=== PATIENT | male | born 1955 | race African-American/Black ===

== ENCOUNTER 2017-01-04 09:03 | Emergency (ER) | payer MEDICAID, MEDICARE ==
[2017-01-04 09:21] VITALS: BP 149/103
--- NOTE | 2017-01-04 09:43 | ED Physician Chart ---
Chief Complaint/HPI - Patient Information Date Seen:: 01/04/17 Time Seen:: 09:30 Chief Complaint:: bilateral knee pain History of Present Illness:: THIS IS A 61 YO BLACK MALE WITH BILATERAL KNEE PAIN AND STATES THAT HE HAS ARTHRITIS IN BOTH KNEES. HE STATES THAT HIS PAIN IS 8/10 AND HAS BEEN TAKING NARCO 10/325 AND RAN OUT. HE STATES THAT HE IS SCHEDULED FOR TREATMENT BY A PAIN MANAGEMENT DOCTOR ON SATURDAY JANUARY 07, 2017. HE STATES THAT HE HAD SURGERY OF THE LEFT KNEE MANY YEARS AGO. HE DENIES DIABETES BUT ADMITS TO HYPERTENSION. HE IS A SMOKER BUT DENIES ALCOHOL USE. HE ALSO DENIES ILLEGAL DRUG USE. Allergies:: Allergies Allergy/AdvReac Type Severity Reaction Status Date / Time No Known Allergies Allergy Verified 01/04/17 09:16 Vitals:: Vital Signs - 8 hr 01/04/17 01/04/17 09:21 09:24 Temp 98.2 F HR 69 RR 15 BP 149/103 149/103 Historian:: Patient Review:: Nurse's Note Reviewed Review of Systems - Review of Systems General/Constitutional: No fever, No chills, No weight loss, No weakness, No diaphoresis, No edema, No loss of appetite Skin: No skin lesions, No rash, No bruising Head: No headache, No light-headedness Eyes: No loss of vision, No pain, No diplopia ENT: No earache, No nasal drainage, No sore throat, No tinnitus Neck: No neck pain, No swelling, No thyromegaly, No stiffness, No mass noted Cardio Vascular: No chest pain, No palpitations, No PND, No orthopnea, No edema Pulmonary: No SOB, No cough, No sputum, No wheezing GI: No nausea, No vomiting, No diarrhea, No pain, No melena, No hematochezia, No constipation, No hematemesis G/U: No dysuria, No frequency, No hematuria Musculoskeletal: Bone or joint pain (BOTH KNEES), No back pain, No muscle pain Endocrine: No polyuria, No polydipsia Psychiatric: No prior psych history, No depression, No anxiety, No suicidal ideation Hematopoietic: No bruising, No lymphadenopathy Allergic/Immuno: No urticaria, No angioedema Neurological: No syncope, No focal symptoms, No weakness, No paresthesia, No headache, No seizure, No dizziness, No confusion, No vertigo Past Medical History - Past Medical History Obtainable: Yes Past Medical History: HTN, Arthritis Family History: None, HTN Social History: Smoker, No Alcohol, No Drug Use Surgical History: other (LEFT KNEE SURGERY) Psychiatricy History: None Medication: Reviewed Family Medical History - Family Member Mother Hx Family Cancer: No Hx Family Coronary Artery Disease: No Hx Family Congestive Heart Failure: No Hx Family Hypertension: Yes Hx Family Diabetes: Yes Hx Family Seizures: No Hx Family AIDS: No Hx Family HIV: No Hx Family COPD: No Hx Family Hepatitis: No Hx Family Psychiatric Problems: No Hx Family Tuberculosis: No Physical Exam - Physical Examination General/Constitutional: Awake, Well-developed, well-nourished, Alert, No distress, GCS 15, Non-toxic appearing, Ambulatory Head: Atraumatic Eyes: Lids, conjuctiva normal, PERRL, EOMI Skin: Nl inspection, No rash, No skin lesions, No ecchymosis, Well hydrated, No lymphadenopathy ENMT: External ears, nose nl, Nasal exam nl, Lips, teeth, gums nl Neck: Nontender, Full ROM w/o pain, No JVD, No nuchal rigidity, No bruit, No mass, No stridor Respiratory: Nl effort/Exclusion, Clear to Auscultation, No Wheeze/Rhonchi/Rales Cardio Vascular: RRR, No murmur, gallop, rubs, NL S1 S2 GI: No tenderness/rebounding/guarding, No organomegaly, No hernia, Normal BS's, Nondistended, No mass/bruits, No McBurney tenderness : No CVA tenderness Extremities: No tenderness or effusion, Full ROM (FULL ROM WITH MILD PAIN ON FLEXSION), normal strength in all extremities, No edema, Normal digits & nails Neuro/Psych: Alert/oriented, DTR's symmetric, Normal sensory exam, Normal motor strength, Judgement/insight normal, Mood normal, Normal gait, No focal deficits Misc: normal gait, Normal back, No paraspinal tenderness Labs/Radiology/EKG Results - Lab Results Results: Abnormal Lab Results 01/04/17 01/04/17 01/04/17 09:48 09:48 09:48 WBC 4.2 L RBC 6.17 H Hgb 17.3 Hct 51.9 H MCV 84.1 MCH 28.1 MCHC Differential 33.4 RDW 13.6 Plt Count 193 MPV 8.4 PT 11.5 INR 1.10 PTT (Actin FS) 27.4 Sodium 139 Potassium 3.0 L Chloride 107 Carbon Dioxide 27.4 Anion Gap 7.6 BUN 8 Creatinine 0.9 Est GFR ( Amer) > 60.0 Est GFR (Non-Af Amer) > 60.0 BUN/Creatinine Ratio 8.9 Glucose 109 H Calcium 9.5 Total Bilirubin 1.7 H AST 34 ALT 68 H Alkaline Phosphatase 62 Troponin I Total Protein 7.5 Albumin 4.4 Globulin 3.1 Albumin/Globulin Ratio 1.4 Triglycerides 149 Cholesterol 149 LDL Cholesterol Direct 84 HDL Cholesterol 34 Urine Source Urine Color Urine Clarity Urine pH Ur Specific [place] Urine Protein Urine Glucose (UA) Urine Ketones Urine Blood Urine Nitrate Urine Bilirubin Urine Urobilinogen Ur Leukocyte Esterase Urine RBC Urine WBC Ur Epithelial Cells Urine Bacteria Urine Opiates Screen Urine Methadone Screen Ur Barbiturates Screen Ur Tricyclics Screen Ur Phencyclidine Scrn Amphetamines Screen U Methamphetamines Scrn U Benzodiazepines Scrn U Cocaine Metab Screen U Cannabinoids Screen 01/04/17 01/04/17 01/04/17 09:48 10:10 10:10 WBC RBC Hgb Hct MCV MCH MCHC Differential RDW Plt Count MPV PT INR PTT (Actin FS) Sodium Potassium Chloride Carbon Dioxide Anion Gap BUN Creatinine Est GFR ( Amer) Est GFR (Non-Af Amer) BUN/Creatinine Ratio Glucose Calcium Total Bilirubin AST ALT Alkaline Phosphatase Troponin I < 0.01 L Total Protein Albumin Globulin Albumin/Globulin Ratio Triglycerides Cholesterol LDL Cholesterol Direct HDL Cholesterol Urine Source CLEAN C Urine Color YELLOW Urine Clarity SL. CLOUDY Urine pH 7.0 Ur Specific [place] 1.025 Urine Protein NEGATIVE Urine Glucose (UA) NEGATIVE Urine Ketones NEGATIVE Urine Blood TRACE Urine Nitrate NEGATIVE Urine Bilirubin NEGATIVE Urine Urobilinogen 0.2 Ur Leukocyte Esterase NEGATIVE Urine RBC 1-3 Urine WBC 0-2 Ur Epithelial Cells OCCASIONAL Urine Bacteria NONE SEEN Urine Opiates Screen NEGATIVE Urine Methadone Screen NEGATIVE Ur Barbiturates Screen NEGATIVE Ur Tricyclics Screen NEGATIVE Ur Phencyclidine Scrn NEGATIVE Amphetamines Screen NEGATIVE U Methamphetamines Scrn NEGATIVE U Benzodiazepines Scrn NEGATIVE U Cocaine Metab Screen NEGATIVE U Cannabinoids Screen NEGATIVE - Radiology Results Results: BILATERAL KNEE DEGENERATIVE DISEASE BILATERAL LOOSE BODIES Assessment - Assessment General Assessment: THIS PATIENT STATED THAT HE ONLY WANT NORCO FOR TODAY AND HE WILL SEE THE PAIN MANAGEMENT ON SATURDAY. I EXPLAINED THAT HE NEEDS TO SEE AN ORTHOPEDIC SURGEON FOR REMOVAL OF THE LOOSE BODIES. HE WAS TOLD THAT HE SHOULD ALSO SEE AN ARTHRITIS DOCTOR AND IF THAT DOES NOT WORK THEN HE MIGHT NEED KNEE JOINT REPLACEMENTS. ED Septic Shock - . Is Septic Shock (SBP<90, OR Lactate>4 mmol\L) present?: No - <6hrs of presentation: Vital Signs: Vital Signs - 8 hr 01/04/17 01/04/17 09:21 09:24 Temp 98.2 F HR 69 RR 15 BP 149/103 149/103 Reassessment (Disposition) - Reassessment Reassessment Condition:: Improved - Diagnosis Diagnosis:: BILATERAL LOOSE BODIES OF THE KNEES DEGENERATIVE JOINT DISEASE OF THE KNEES - Aftercare/Follow up Instructions Aftercare/Follow-Up Instructions:: Counseled pt regarding lab results/diagnosis & need follow up, Refer to Discharge Instructions, Counseled pt & family regarding lab results/diagnosis & need follow up Medication Prescribed:: GABAPENTINE - Patient Disposition Discharge/Transfer:: Home Condition at Disposition:: Improved ED Discharge Plan - Patient Disposition Admit/Discharge/Transfer: PT DISCHARGED HOME Condition at Disposition: Improved Instructions: Arthritis, Nonspecific
[2017-01-04 10:05] LABS: HEMATOCRIT 51.9 % (39.0-49.0); HEMOGLOBIN 17.3 gm/dL (13.2-17.3); INR 1.1 (0.5-1.4); MEAN CELL VOLUME 84.1 fl (80-99); MEAN CORPUSCULAR HEMOGLOBIN 28.1 pg (26.0-30.0); MEAN CORPUSCULAR HGB CONC 33.4 pg (28.0-36.0); MEAN PLATELET VOLUME 8.4 fl; PLATELET COUNT 193 Th/cmm (150-400); PROTHROMBIN TIME (TEST) 11.5 SECONDS (9.5-11.5); RED BLOOD COUNT 6.17 Mil/cmm (4.30-5.70); RED CELL DISTRIBUTION WIDTH 13.6 % (11.5-20.0); WHITE BLOOD COUNT 4.2 Th/cmm (4.8-10.8)
[2017-01-04 10:08] LABS: ALB/GLOB RATIO 1.4 (1.0-1.8); ALKALINE PHOSPHATASE 62 U/L (34-104); ANION GAP 7.6 (7.0-16.0); BILIRUBIN,TOTAL 1.7 mg/dL (0.3-1.0); BUN - UREA NITROGEN 8 mg/dL (7-25); BUN/CREATININE RATIO 8.9; CALCIUM SERUM 9.5 mg/dL (8.6-10.3); CARBON DIOXIDE 27.4 mEq/L (21.0-31.0); CHLORIDE 107 mEq/L (98-107); CHOLESTEROL 149 mg/dL (<200); CREATININE - SERUM 0.9 mg/dL (0.7-1.3); GLUCOSE 109 mg/dL (70-105); SGOT 34 U/L (13-39); SGPT/ALT 68 U/L (7-52); SODIUM SERUM 139 mEq/L (136-145); TRIGLYCERIDES 149 mg/dL (<150)
[2017-01-04 10:16] LABS: URINE BILIRUBIN NEGATIVE (NEGATIVE); URINE BLOOD TRACE (NEGATIVE); URINE COLOR YELLOW; URINE GLUCOSE (UA) NEGATIVE (NEGATIVE); URINE KETONE NEGATIVE (NEGATIVE); URINE PROTEIN NEGATIVE (NEGATIVE); URINE UROBILINOGEN 0.2 E.U./dL (0.2 - 1.0)
[2017-01-04 10:20] LABS: URINE BACTERIA NONE SEEN /hpf (NONE SEEN); URINE EPITHELIAL CELLS OCCASIONAL /lpf (FEW); URINE WBC 0-2 /hpf (0-5)
[2017-01-04] MEDS ORDERED: Potassium Chloride 20 mEq ER Tab PO ONE ×3 (10:24→10:53)
[2017-01-04 10:32] LABS: AMPHETAMINE URINE NEGATIVE (NEGATIVE); BARBITURATES URINE NEGATIVE (NEGATIVE); METHADONE URINE NEGATIVE (NEGATIVE)
--- NOTE | 2017-01-04 10:41 | Diagnostic Imaging Report ---
Right knee (3 views) HISTORY: Pain Marked medial joint space narrowing. Hypertrophic spur formation noted about the medial femoral condyle and medial tibial plateau. Spur formation seen about the tibial spines. Narrowing and hypertrophic bone formation seen about the patellofemoral joint region. No acute abnormalities. No fractures. IMPRESSION: 1. No acute abnormalities 2. Degenerative joint disease
--- NOTE | 2017-01-04 10:41 | Diagnostic Imaging Report ---
Left knee (3 views) HISTORY: Pain Medial joint space narrowing. Hypertrophic bone formation noted about the medial femoral condyle and medial tibial plateau. Spur formation seen about the tibial spines. Mild irregularity noted along the lateral tibial plateau. Suggestion of chondrocalcinosis probably on a degenerative basis. Narrowing and hypertrophic bone formation seen about the patellofemoral joint region. Small spur formation extends off the tibial tubercle. IMPRESSION: 1. Degenerative changes as noted above 2. No acute bony abnormalities
[2017-01-04 10:43] LABS: EOSINOPHIL 6 % (0-5); NEUTROPHILS 45 % (40-80); TOTAL CELLS COUNTED 100
[2017-01-04 10:44] LABS: PLATELET ESTIMATE ADEQUATE (NORMAL); PLATELET MORPHOLOGY NORMAL (NORMAL)
[2017-01-04] MEDS ORDERED: Potassium Chloride Elixir 20 mEq /15 mL UDC GT ONE (10:54)
[2017-01-04] MEDS ORDERED: Potassium Chloride Elixir 20 mEq /15 mL UDC ONE (10:55)
== END 2017-01-04 11:00 | disposition home or self-care (01) ==
LOC: ER 09:03
DX: M17.0 Bilateral primary osteoarthritis of knee (principal); I10 Essential (primary) hypertension; F17.200 Nicotine dependence, unspecified, uncomplicated
CPT/HCPCS: 36415-UA; 73562-TC-LT; 73562-TC-RT; 80053-TC; 80061-TC; 81001-TC; 84443-TC; 84484-TC; 85007-TC; 85027-TC; 85610-TC; 85730-TC; 86430-90; 86592-TC